=== PATIENT | female | born 1965 | race Caucasian/White ===

== ENCOUNTER 2020-11-21 14:28 | Emergency (ER) | payer OTHER ==
[2020-11-21 14:43] VITALS: BP 149/87; PULSE 80; TEMP 97; BMI 30.9
== END 2020-11-21 16:58 | disposition home or self-care (01) ==
LOC: JER 14:28
DX: T17.820A Food in other parts of respiratory tract causing asphyxiation, initial encounter (principal)
CPT/HCPCS: 36415; 70360-TC-FY; 84443; 99284-25

== ENCOUNTER 2021-10-19 05:19 | Day surgery (SDC) | payer OTHER ==
[2021-10-18 17:44] VITALS: BMI 30.9
[~2021-10-19 05:19] MED LIST: ACETAMINOPHEN 325 MG TABLET (FP) PO PRN
[2021-10-19] MEDS ORDERED: BSS (NA/CA/MG/K) BALANCED SALT SOLUTION OPHTH SOLN 15 ML BOTTLE ONE (07:28)
[2021-10-19] MEDS ORDERED: TETRACAINE 0.5% OPHTH SOLN 2 ML BOTTLE ONE (07:28)
[2021-10-19] MEDS ORDERED: LIDOCAINE HCL/PF 1% SDV 5ML VIAL ONE (07:28)
[2021-10-19] MEDS ORDERED: POVIDONE-IODINE 5% OPHTHALMIC PREP 30 ML SOLUTION ONE (07:28)
[2021-10-19 09:05] VITALS: RESP 20
[2021-10-19] MEDS ORDERED: KETOROLAC TROMETHAMINE 0.5% EYE DROP 1 DROP DROPS ONE (09:19)
[2021-10-19] MEDS ORDERED: TROPICAMIDE 1% OPHTH SOLN 15 ML BOTTLE ONE (09:19)
[2021-10-19] MEDS ORDERED: CYCLOPENTOLATE HCL 1% OPHTH SOLN 2 ML BOTTLE ONE (09:19)
[2021-10-19] MEDS ORDERED: OFLOXACIN 0.3% OPHTHALMIC SOLUTION 5 ML BOTTLE ONE (09:20)
[2021-10-19] MEDS ORDERED: PHENYLEPHRINE 2.5% OPHTH SOLN 15 ML BOTTLE ONE (09:20)
[2021-10-19] MEDS: CYCLOPENTOLATE HCL 1% OPHTH SOLN 2 ML BOTTLE OP SCH ×3 (09:30→09:40)
[2021-10-19] MEDS: KETOROLAC TROMETHAMINE 0.5% EYE DROP 1 DROP DROPS OP SCH ×3 (09:30→09:40)
[2021-10-19] MEDS: TROPICAMIDE 1% OPHTH SOLN 15 ML BOTTLE OP SCH ×3 (09:30→09:40)
[2021-10-19] MEDS: PHENYLEPHRINE 2.5% OPHTH SOLN 15 ML BOTTLE OP SCH ×3 (09:30→09:40)
[2021-10-19] MEDS: OFLOXACIN 0.3% OPHTHALMIC SOLUTION 5 ML BOTTLE OP SCH ×3 (09:30→09:40)
[2021-10-19] MEDS ORDERED: MIDAZOLAM HCL 2 MG/2 ML SINGLE DOSE VIAL ONE (10:12)
[2021-10-19] MEDS ORDERED: TETRACAINE 0.5% OPHTH SOLN 2 ML BOTTLE TP ONE (10:15)
[2021-10-19] MEDS ORDERED: POVIDONE-IODINE 5% OPHTHALMIC PREP 30 ML SOLUTION OS ONE (10:16)
[2021-10-19] MEDS ORDERED: CHONDROITIN SU A/HYALUR SOD 1 KIT IO ONE (10:24)
[2021-10-19] MEDS ORDERED: TRYPAN BLUE 0.5 ML DISP.SYRIN IO ONE (10:24)
[2021-10-19] MEDS ORDERED: LIDOCAINE HCL 1% PRESERVATIVE FREE - 30ML VIAL IO ONE (10:24)
[2021-10-19] MEDS ORDERED: BSS (NA/CA/MG/K) BALANCED SALT SOLUTION OPHTH SOLN 15 ML BOTTLE OS ONE (10:24)
[2021-10-19] MEDS ORDERED: EPINEPHrine/PF 1 MG/1 ML (1:1,000) AMPULE SQ ONE (10:30)
[2021-10-19] MEDS ORDERED: ACETAMINOPHEN 325 MG TABLET (FP) PO ONE (11:25)
[2021-10-19] MEDS ORDERED: ACETAMINOPHEN 325 MG TABLET (FP) ONE (11:25)
[2021-10-19 13:04] VITALS: BP 122/79; PULSE 68; TEMP 97.5
== END 2021-10-19 13:06 | disposition home or self-care (01) ==
LOC: JASU-SURG 05:19
PROVIDERS: ATTEND Ophthalmology
PROC: 08RK3JZ Replacement of Left Lens with Synthetic Substitute, Percutaneous Approach (ICD-10-PCS; principal; 2021-10-19 11:00)
DX: H26.9 Unspecified cataract (principal)

== ENCOUNTER 2022-03-20 14:54 | Day surgery (SDC) | payer OTHER ==
[2022-03-20] MEDS ORDERED: FAMOTIDINE 20 MG/50 ML IVPB 20 MG/50 ML MG IVPB ONE ×2 (16:48→16:55)
[2022-03-20] MEDS ORDERED: SODIUM CHLORIDE 0.9% 500 ML INFUS.BAG IV ONE (16:48)
[2022-03-20] MEDS ORDERED: ONDANSETRON 4 MG/2 ML VIAL IVPUSH ONE (16:48)
[2022-03-20] MEDS ORDERED: KETOROLAC TROMETHAMINE 30 MG/1 ML VIAL IVPUSH ONE (16:48)
[2022-03-20] MEDS ORDERED: KETOROLAC TROMETHAMINE 30 MG/1 ML VIAL ONE (16:53)
[2022-03-20] MEDS ORDERED: ONDANSETRON 4 MG/2 ML VIAL ONE (16:55)
[2022-03-20 17:08] LABS: BASO % 0.3 % (0-2.0); EOS % 0.1 % (0-4.5); HEMATOCRIT 39.6 % (32.4-45.2); HEMOGLOBIN 12.9 GM/dL (10.7-15.3); LYMPH % 11.3 % (8-40); MCH 26.1 pg (25.7-33.7); MCHC 32.5 g/dl (32.0-36.0); MEAN CELL VOLUME 80.5 fl (80-96); MONO % 5.1 % (3.8-10.2); NEUT % 83.2 % (42.8-82.8); PLATELET COUNT 317 10^3/uL (134-434); RBC 4.92 M/mm3 (3.60-5.2); RDW 14.6 % (11.6-15.6); WHITE BLOOD COUNT 17.2 K/mm3 (4.0-10.0)
[2022-03-20 17:32] LABS: ALBUMIN 4.1 g/dl (3.4-5.0); BLOOD UREA NITROGEN 10.5 mg/dL (7-18); CALCIUM 9.9 mg/dL (8.5-10.1)
[2022-03-20 17:36] LABS: CREATININE 0.7 mg/dL (0.55-1.3)
[2022-03-20 17:37] LABS: BILIRUBIN,TOTAL 0.3 mg/dL (0.2-1); TOT PROT 7.6 g/dl (6.4-8.2)
[2022-03-20 18:41] LABS: EPI CELLS 19 /uL (0-25.1); HYALINE CASTS 0 /uL (0-3.1); URINE APPEARANCE CLEAR; URINE BACTERIA 172 /uL (0-1359); URINE BILIRUBIN NEGATIVE (NEGATIVE); URINE COLOR YELLOW; URINE GLUCOSE (UA) NEGATIVE (NEGATIVE); URINE KETONE NEGATIVE (NEGATIVE); URINE LEUK ESTERASE 2+ (NEGATIVE); URINE NITRITE NEGATIVE (NEGATIVE); URINE PROTEIN NEGATIVE (NEGATIVE); URINE RBC 35 /uL (0-23.9); URINE UROBILINOGEN 0.2 mg/dL (0.2-1.0); URINE WBC 93 /uL (0-25.8)
[2022-03-20] MEDS ORDERED: ONDANSETRON 4 MG/2 ML VIAL IVPUSH PRN (22:16)
[2022-03-20] MEDS ORDERED: ACETAMINOPHEN 1000 MG/100 ML BAG IVPB ONE (22:18)
[2022-03-20] MEDS ORDERED: ACETAMINOPHEN INJECTION 100 ML IVPB ONE (22:25)
[2022-03-20] MEDS ORDERED: DEXTROSE 5%-0.45% SALINE 1,000 ML IV SCH (22:30)
[2022-03-20] MEDS ORDERED: ALBUTEROL SO4 HFA INHALER IH PRN (22:46)
[2022-03-21 01:32] VITALS: BMI 33.5
[2022-03-21 02:37] LABS: INR 1.17 (0.83-1.09); PROTHROMBIN TIME (PATIENT) 13.5 SEC (9.7-13.0)
[2022-03-21] MEDS ORDERED: ACETAMINOPHEN 1000 MG/100 ML BAG IVPB PRN ×2 (04:00→12:09)
[2022-03-21 09:22] LABS: BASO % 0.4 % (0-2.0); EOS % 0.5 % (0-4.5); HEMOGLOBIN 11.3 GM/dL (10.7-15.3); LYMPH % 26.3 % (8-40); MCH 27.1 pg (25.7-33.7); MCHC 33.2 g/dl (32.0-36.0); MEAN CELL VOLUME 81.5 fl (80-96); MEAN PLT VOLUME 9.4 fl (7.5-11.1); MONO % 7.6 % (3.8-10.2); NEUT % 65.2 % (42.8-82.8); PLATELET COUNT 247 10^3/uL (134-434); RBC 4.17 M/mm3 (3.60-5.2); RDW 14.3 % (11.6-15.6); WHITE BLOOD COUNT 6.7 K/mm3 (4.0-10.0)
[2022-03-21 09:39] LABS: BLOOD UREA NITROGEN 10.2 mg/dL (7-18)
[2022-03-21 09:43] LABS: CREATININE 0.7 mg/dL (0.55-1.3)
[2022-03-21] MEDS ORDERED: BUPIVACAINE HCL/PF 0.5% (5MG/ML) 10 ML VIAL ONE (09:46)
[2022-03-21] MEDS ORDERED: PROMETHAZINE HCL 25 MG/1 ML VIAL IVPB PRN ×2 (09:56→12:09)
[2022-03-21] MEDS ORDERED: LEVOTHYROXINE SODIUM 100 MCG/ML 1 ML VIAL IVPUSH SCH (10:00)
[2022-03-21] MEDS ORDERED: LACTATED RINGERS SOLUTION 1,000 ML IV SCH (10:00)
[2022-03-21] MEDS ORDERED: LIDOCAINE HCL/PF 2% SDV 5ML VIAL ONE (10:04)
[2022-03-21] MEDS ORDERED: PROPOFOL 20 ML ONE (10:04)
[2022-03-21] MEDS ORDERED: MIDAZOLAM HCL 2 MG/2 ML SINGLE DOSE VIAL ONE (10:04)
[2022-03-21] MEDS ORDERED: ROCURONIUM BROMIDE 50 MG/5 ML SYRINGE ONE (10:04)
[2022-03-21] MEDS ORDERED: GLYCOPYRROLATE 0.2 MG/1 ML VIAL ONE ×2 (10:06→11:14)
[2022-03-21] MEDS ORDERED: DEXAMETHASONE SOD PHOSPHATE 4 MG/1 ML VIAL ONE (11:04)
[2022-03-21] MEDS ORDERED: ONDANSETRON 4 MG/2 ML VIAL ONE (11:04)
[2022-03-21] MEDS ORDERED: KETOROLAC TROMETHAMINE 30 MG/1 ML VIAL ONE (11:05)
[2022-03-21] MEDS ORDERED: NEOSTIGMINE METHYLSULFATE 0.5 MG/1 ML - 10 ML MDV ONE (11:14)
[2022-03-21] MEDS ORDERED: BUPIVACAINE HCL/PF 0.5% (5 MG/ML) 30 ML VIAL IJ ONE ×2 (11:20)
[2022-03-21] MEDS ORDERED: ALBUTEROL SO4 HFA INHALER IH PRN (12:09)
[2022-03-21] MEDS ORDERED: ONDANSETRON 4 MG/2 ML VIAL IVPUSH PRN (12:09)
[2022-03-21] MEDS: LACTATED RINGERS SOLUTION 1,000 ML IV SCH ×2 (15:33→19:04)
[2022-03-21] MEDS ORDERED: oxyCODONE HCL 5 MG TABLET PO PRN ×2 (16:51→22:21)
[2022-03-21] MEDS ORDERED: BENZOCAINE/MENTH/CETYLPYRD CL 1 EACH LOZENGE MM PRN (17:15)
[2022-03-21] MEDS: oxyCODONE HCL 5 MG TABLET PO PRN (23:58)
[2022-03-22] MEDS: LEVOTHYROXINE NA 150 MCG TABLET PO SCH (06:42)
[2022-03-22 09:42] LABS: HEMATOCRIT 34.5 % (32.4-45.2); HEMOGLOBIN 11.1 GM/dL (10.7-15.3); MCH 26.2 pg (25.7-33.7); MCHC 32.2 g/dl (32.0-36.0); MEAN CELL VOLUME 81.5 fl (80-96); MEAN PLT VOLUME 9.6 fl (7.5-11.1); PLATELET COUNT 256 10^3/uL (134-434); RBC 4.24 M/mm3 (3.60-5.2); RDW 14.4 % (11.6-15.6); WHITE BLOOD COUNT 9.8 K/mm3 (4.0-10.0)
[2022-03-22] MEDS ORDERED: LEVOTHYROXINE SODIUM 100 MCG/ML 1 ML VIAL IVPUSH SCH (10:00)
[2022-03-22] MEDS: oxyCODONE HCL 5 MG TABLET PO PRN ×2 (10:30→17:58)
[2022-03-22 11:12] LABS: BLOOD UREA NITROGEN 9.2 mg/dL (7-18)
[2022-03-22 11:16] LABS: CREATININE 0.7 mg/dL (0.55-1.3)
[2022-03-22 11:18] LABS: BILIRUBIN,TOTAL 0.4 mg/dL (0.2-1); TOT PROT 5.9 g/dl (6.4-8.2)
[2022-03-22] MEDS: LACTATED RINGERS SOLUTION 1,000 ML IV SCH ×2 (11:30→22:30)
[2022-03-22 12:24] LABS: ALBUMIN 3.1 g/dl (3.4-5.0)
[2022-03-22] MEDS: ACETAMINOPHEN 325 MG TABLET (FP) PO PRN (20:54)
[2022-03-22 22:53] VITALS: RESP 20
[2022-03-23] MEDS: ACETAMINOPHEN 325 MG TABLET (FP) PO PRN (01:00)
[2022-03-23] MEDS: LEVOTHYROXINE NA 150 MCG TABLET PO SCH (06:38)
[2022-03-23 09:04] VITALS: BP 136/71; PULSE 88; TEMP 98.6
== END 2022-03-23 12:51 | disposition home or self-care (01) ==
LOC: JER 14:54 → JASUSAT 14:55 → JERBED 21:01 → UNDOADMOB 21:01 → J8W 03-21 00:09 → JERBED 03-21 00:09 → J8W 03-21 00:09 → JASUSAT 03-23 12:51
PROVIDERS: ATTEND Family Medicine
PROC: 0DTJ4ZZ Resection of Appendix, Percutaneous Endoscopic Approach (ICD-10-PCS; principal; 2022-03-20)
DX: K35.80 Unspecified acute appendicitis (principal)
CPT/HCPCS: 0241U-QW; 36415; 71046-TC-FY; 74018-TC-FY; 74177-TC; 80048; 80053; 81003; 85025; 85027; 85610; 86850; 86900; 86901; 87040; 87086; 88304-TC; 93005; 93010; 94760; 99285-25; Q9967

== ENCOUNTER 2023-02-12 06:02 | Emergency (ER) | payer OTHER ==
[2023-02-12 06:11] VITALS: BP 156/85; PULSE 70; RESP 16; TEMP 97.6; BMI 34.3
[2023-02-12] MEDS ORDERED: ACETAMINOPHEN 1000 MG/100 ML BAG IVPB ONE (07:44)
[2023-02-12] MEDS ORDERED: LACTATED RINGERS SOLUTION 1000 ML INFUS.BAG IV ONE (07:44)
[2023-02-12] MEDS ORDERED: METOCLOPRAMIDE HCL INJECTION 10 MG/2 ML VIAL IVPUSH ONE (07:49)
[2023-02-12] MEDS ORDERED: METOCLOPRAMIDE HCL INJECTION 10 MG/2 ML VIAL ONE (08:07)
[2023-02-12] MEDS ORDERED: ACETAMINOPHEN INJECTION 100 ML IVPB ONE (08:07)
[2023-02-12 08:29] LABS: INR 1.01 (0.83-1.09); PROTHROMBIN TIME (PATIENT) 11.7 SEC (9.7-13.0)
[2023-02-12 08:31] LABS: BASO % 0.5 % (0-2.0); EOS % 0.6 % (0-4.5); HEMATOCRIT 38.4 % (32.4-45.2); HEMOGLOBIN 12.2 GM/dL (10.7-15.3); LYMPH % 30.9 % (8-40); MCH 25.6 pg (25.7-33.7); MCHC 31.7 g/dl (32.0-36.0); MEAN CELL VOLUME 80.8 fl (80-96); MEAN PLT VOLUME 8.7 fl (7.5-11.1); MONO % 6.8 % (3.8-10.2); NEUT % 61.2 % (42.8-82.8); PLATELET COUNT 351 10^3/uL (134-434); RBC 4.75 M/mm3 (3.60-5.2); RDW 14.1 % (11.6-15.6); WHITE BLOOD COUNT 10.7 K/mm3 (4.0-10.0)
[2023-02-12 08:32] LABS: ACTIVATED PTT 29.7 SECONDS (25.2-36.5)
[2023-02-12 08:45] LABS: POTASSIUM 4.3 mmol/L (3.5-5.1)
[2023-02-12 08:47] LABS: CALCIUM 8.8 mg/dL (8.5-10.1)
[2023-02-12 08:48] LABS: ALBUMIN 3.4 g/dl (3.4-5.0); BLOOD UREA NITROGEN 11.7 mg/dL (7-18); MAGNESIUM 1.8 mg/dL (1.8-2.4)
[2023-02-12 08:50] LABS: CREATININE 0.7 mg/dL (0.55-1.3)
[2023-02-12 08:52] LABS: TOT PROT 6.7 g/dl (6.4-8.2)
[2023-02-12 08:54] LABS: BILIRUBIN,TOTAL 0.2 mg/dL (0.2-1)
== END 2023-02-12 12:02 | disposition home or self-care (01) ==
LOC: JER 06:02
PROC: 3E033NZ Introduction of Analgesics, Hypnotics, Sedatives into Peripheral Vein, Percutaneous Approach (ICD-10-PCS; principal; 2023-02-12)
PROC: 3E033GC Introduction of Other Therapeutic Substance into Peripheral Vein, Percutaneous Approach (ICD-10-PCS; 2023-02-12)
DX: R11.2 Nausea with vomiting, unspecified (principal); R53.1 Weakness; R05.9 Cough, unspecified; R51.9 Headache, unspecified; R19.7 Diarrhea, unspecified; R07.0 Pain in throat; R09.81 Nasal congestion; R10.84 Generalized abdominal pain; Z20.822 Contact with and (suspected) exposure to COVID-19
CPT/HCPCS: 0241U-QW; 36415; 70450-TC; 71045-TC-FY; 80053; 83690; 83735; 84484; 85025; 85610; 85730; 93005; 93010; 96374; 96375; 99285-25

== ENCOUNTER 2024-06-01 19:37 | Emergency (ER) | payer OTHER ==
[2024-06-01 20:00] VITALS: TEMP 98.2; BMI 34.0
[2024-06-01 20:16] VITALS: PULSE 87
[2024-06-01] MEDS ORDERED: ACETAMINOPHEN 325 MG TABLET (FP) ONE (20:31)
[2024-06-01] MEDS: ACETAMINOPHEN 500 MG TABLET (FP) PO ONE (20:38)
[2024-06-01] MEDS: MAG HYDROX/ALH/SMC/DPHA/LIDO 240 ML MOUTHWASH MM ONE (21:46)
[2024-06-01 22:11] VITALS: BP 120/81; RESP 16
[2024-06-02] MEDS ORDERED: MAG HYDROX/ALH/SMC/DPHA/LIDO 240 ML MOUTHWASH MM ONE (20:59)
== END 2024-06-01 22:14 | disposition home or self-care (01) ==
LOC: JER 19:37
DX: U07.1 COVID-19 (principal); R06.02 Shortness of breath; R05.9 Cough, unspecified; R51.9 Headache, unspecified; M79.10 Myalgia, unspecified site; R50.9 Fever, unspecified; R11.2 Nausea with vomiting, unspecified
CPT/HCPCS: 0241U-QW; 71046-TC-FY; 93005; 93010; 99285-25